=== PATIENT | female | born 1965 | race Two or more races ===

== ENCOUNTER → 2016-07-05 | Outpatient (CLI) | payer OTHER ==
--- NOTE | 2016-07-05 10:32 | KCIC ---
PROCEDURE Cervical spine MRI without contrast. HISTORY Cervical radiculopathy. TECHNIQUE Multiplanar and multi sequence magnetic resonance imaging of the cervical spine was performed without contrast. COMPARISON None. FINDINGS There is no listhesis. The vertebral bodies are normal in height and the disc spaces are preserved. There is no suspicious osseous lesion. The skullbase and posterior fossa are unremarkable. There are minimal disc bulges and there is minimal to mild facet arthropathy at multiple levels. There is no significant foraminal or central canal stenosis. No spinal cord lesion is seen. IMPRESSION Minimal degenerative change within the cervical spine. There is no significant stenosis. Electronically signed by: Yasmine Jacome (Jul 05, 2016 10:30:38)
== END | disposition home or self-care (01) ==
LOC: KCIC MRI 09:06
PROVIDERS: ATTEND Physician Assistant
DX: M54.12 Radiculopathy, cervical region (principal)
CPT/HCPCS: 72141

== ENCOUNTER → 2021-05-02 | Outpatient (CLI) | payer OTHER ==
--- NOTE | 2021-05-03 09:03 | RAD ---
Exam Date: 05/02/2021 6:45 AM US ABDOMEN COMPLETE Indication: Reason: ABNORMAL LIVER ENZYMES / Spl. Instructions: / History: . TECHNIQUE: Multiple longitudinal and transverse sonographic images of the abdomen are submitted for interpretation. FINDINGS: The liver is normal in size but diffusely increased in echogenicity and heterogeneous in echotexture. The portal vein is patent, with hepatopetal flow. No focal intrahepatic abnormality is seen. The gallbladder is normal, without gallstones, gallbladder wall thickening or pericholecystic fluid. There is no biliary ductal dilatation, with the common bile duct measuring 5 mm. The spleen is normal in size and echogenicity. The visualized abdominal aorta, inferior vena cava an d pancreas are within normal limits. There is no upper abdominal ascites. The kidneys are normal in appearance, with the right kidney measuring 10.0 cm and the left kidney measuring 12.6 cm. IMPRESSION: Diffusely increased hepatic echogenicity and heterogeneous echotexture, consistent with underlying fa tty infiltration and/or hepatocellular disease. This limits sonographic sensitivity. Electronically signed by: Brandon Sarmiento MD (05/03/2021 9:00 AM) [id number]
== END ==
LOC: US 06:32
PROVIDERS: ATTEND Nurse Practitioner Family
DX: R94.5 Abnormal results of liver function studies (principal)
CPT/HCPCS: 76700